=== PATIENT | female | born 1940 | race Hispanic/Latino ===

== ENCOUNTER → 2018-08-30 | Outpatient (CLI) | payer OTHER ==
[~2018-08-30] MED LIST: ACET-2743 PO; ALEN70TA10 PO; AMLO5TAB9 PO; CALC-1009 PO; PANT40TA25 PO
== END | disposition home or self-care (01) ==
LOC: RAH 12:42
PROVIDERS: ATTEND Internal Medicine
DX: E11.9 Type 2 diabetes mellitus without complications (principal)
CPT/HCPCS: 93922

== ENCOUNTER → 2018-12-28 | Outpatient (CLI) | payer OTHER ==
[2018-12-28 09:07] LABS: CREATININE 0.7 mg/dL (0.5-1.5)
== END | disposition home or self-care (01) ==
LOC: LAB 08:19
PROVIDERS: ATTEND Internal Medicine
DX: R10.84 Generalized abdominal pain (principal); R19.00 Intra-abdominal and pelvic swelling, mass and lump, unspecified site; K42.9 Umbilical hernia without obstruction or gangrene
CPT/HCPCS: 36415; 82565; 84520

== ENCOUNTER → 2019-01-04 | Outpatient (CLI) | payer OTHER ==
[~2019-01-04] MED LIST changes: +IOHEXOL-350 75 ML VIAL IV ONE
== END | disposition home or self-care (01) ==
LOC: RAH 07:22
PROVIDERS: ATTEND Internal Medicine
DX: K42.9 Umbilical hernia without obstruction or gangrene (principal); K76.0 Fatty (change of) liver, not elsewhere classified; J84.10 Pulmonary fibrosis, unspecified; J98.11 Atelectasis; I70.0 Atherosclerosis of aorta; M47.819 Spondylosis without myelopathy or radiculopathy, site unspecified; K57.30 Diverticulosis of large intestine without perforation or abscess without bleeding; K59.00 Constipation, unspecified
CPT/HCPCS: 74177; Q9967

== ENCOUNTER 2019-03-15 06:09 | Day surgery (SDC) | payer OTHER ==
[2019-03-11 14:48] VITALS: BP 95/61
[2019-03-11 14:56] LABS: BASOPHILS % (AUTO) 0.3 % (0.0-5.0); HEMATOCRIT 38.7 % (36-48); LYMPHOCYTES % (AUTO) 20.8 % (21.0-51.0); MEAN CORPUSCULAR HEMOGLOBIN 27.9 pg (27.0-33.0); MEAN CORPUSCULAR HGB CONC 32.8 g/dL (32.0-36.0); MEAN CORPUSCULAR VOLUME 85.1 fL (79-99); MONOCYTES % (AUTO) 5.3 % (3.0-13.0); NEUTROPHILS % (AUTO) 72.6 % (40.0-77.0); PLATELET COUNT (AUTO) 283 K/uL (130-400); RED BLOOD CELL COUNT(AUTO) 4.55 MIL/uL (4.00-5.50); RED CELL DISTRIBUTION WIDTH 16.1 % (11.0-15.5); WHITE BLOOD COUNT (AUTO) 14.5 K/uL (4.8-10.8)
--- NOTE | 2019-03-11 15:00 | NUR ---
HEADACHES/CT SCAN PATIENT STATES SHE IS SCHEDULED FOR AT CT SCAN OF HEAD TODAY AT 4:30 PM AT [facility] DUE TO A FALL 3-4 WEEKS AGO AND NOW HAVING HEADACHES. CT SCAN ORDERED BY HER PRIMARY CARE DR. CARLTON. ADRYAN AT DR. BANKS OFFICE NOTIFIED. ADVISED PATIENT/SPOUSE TO NOTIFY DR. SCOTT OF RESULTS ON THURSDAY. VERBALIZED UNDERSTANDING.
[2019-03-11 15:07] LABS: CREATININE 0.9 mg/dL (0.5-1.5); POTASSIUM 3.9 mmol/L (3.5-5.1)
--- NOTE | 2019-03-14 15:49 | NUR ---
ABNORMAL LABS WBC 14.[address] SCOTT. ORDERS TO REPEAT CBC IN AM UPON ARRIVAL.
[~2019-03-15] VITALS: Ht 147.3 cm; Wt 66.0 kg
[2019-03-15] VITALS (11 sets, daily range): BP systolic 109–158; BP diastolic 44–78
[~2019-03-15 06:09] MED LIST changes: -ALEN70TA10 PO; -AMLO5TAB9 PO; -CALC-1009 PO; +CETI10CA5 PO; -IOHEXOL-350 75 ML VIAL IV ONE; +METF-444 PO; +OLME40TA18 PO; +SODIUM CHLORIDE 0.9% 1000ML 1,000 ML IV SCH
[2019-03-15 06:45] LABS: BASOPHILS % (AUTO) 0.3 % (0.0-5.0); EOSINOPHILS % (AUTO) 1.8 % (0.0-8.0); HEMATOCRIT 36.4 % (36-48); LYMPHOCYTES % (AUTO) 26.9 % (21.0-51.0); MEAN CORPUSCULAR HEMOGLOBIN 28.7 pg (27.0-33.0); MEAN CORPUSCULAR HGB CONC 34.3 g/dL (32.0-36.0); MEAN CORPUSCULAR VOLUME 83.7 fL (79-99); MONOCYTES % (AUTO) 7.6 % (3.0-13.0); NEUTROPHILS % (AUTO) 63.4 % (40.0-77.0); PLATELET COUNT (AUTO) 208 K/uL (130-400); RED BLOOD CELL COUNT(AUTO) 4.34 MIL/uL (4.00-5.50); RED CELL DISTRIBUTION WIDTH 15.5 % (11.0-15.5); WHITE BLOOD COUNT (AUTO) 8.7 K/uL (4.8-10.8)
--- NOTE | 2019-03-15 07:21 | NUR ---
DR. ROTH AWARE OF PT FALL, INTERVIEWED PT.
[2019-03-15] MEDS ORDERED: SUCCINYLCHOLINE 200MG/10ML SYR ONE (07:31)
[2019-03-15] MEDS ORDERED: DEXAMETHASONE SOD PHOSPHATE 10MG/ML 1ML VIAL ONE (07:31)
[2019-03-15] MEDS ORDERED: LIDOCAINE PF 2% 5ML ABBOJECT ONE ×2 (07:31→07:33)
[2019-03-15] MEDS ORDERED: ONDANSETRON HCL 4 MG/2 ML VIAL ONE (07:32)
[2019-03-15] MEDS ORDERED: GLYCOPYRROLATE 1 MG/5 ML SYRINGE ONE (07:32)
[2019-03-15] MEDS ORDERED: PROPOFOL 10 MG/ML 20ML VIAL IV ONE (07:33)
[2019-03-15] MEDS ORDERED: FENTANYL CITRATE PF 50 MCG/1 ML 2ML VIAL ONE (07:33)
[2019-03-15] MEDS ORDERED: NEOSTIGMINE 5MG/5ML SYR IV ONE (07:33)
[2019-03-15] MEDS ORDERED: ROCURONIUM 10MG/1ML SYR 10 MG/ML ML ONE (07:33)
[2019-03-15] MEDS ORDERED: BUPIVACAINE/PF 0.25% 30ML VIAL IJ ONE (07:47)
== END 2019-03-15 10:00 | disposition home or self-care (01) ==
LOC: DAH 06:09
PROVIDERS: ATTEND Surgery
DX: K42.9 Umbilical hernia without obstruction or gangrene (principal); E11.9 Type 2 diabetes mellitus without complications; F17.210 Nicotine dependence, cigarettes, uncomplicated; F32.9 Major depressive disorder, single episode, unspecified; Z79.84 Long term (current) use of oral hypoglycemic drugs; Z79.899 Other long term (current) drug therapy; Z82.49 Family history of ischemic heart disease and other diseases of the circulatory system; Z83.3 Family history of diabetes mellitus; Z82.5 Family history of asthma and other chronic lower respiratory diseases
CPT/HCPCS: 36415 ×2; 49585; 80048; 82948 ×2; 85025 ×2; 93005; A4215; A4221; A4222; A4223 ×2; A4450; A4452; A4606; A4663; A6260; C1781; J0330; J1100; J2001 ×2; J2405; J2704; J2710; J3010; J3490 ×2; J7030 ×2; J7120

== ENCOUNTER 2022-06-25 12:20 | Observation (INO) | payer OTHER ==
[~2022-06-25] VITALS: Ht 152.4 cm; Wt 62.1 kg
[~2022-06-25 12:20] MED LIST changes: -PANT40TA25 PO; +PANT40TA54 PO; -SODIUM CHLORIDE 0.9% 1000ML 1,000 ML IV SCH
[2022-06-25 13:26] LABS: BASOPHILS % (AUTO) 0.3 % (0.0-5.0); EOSINOPHILS % (AUTO) 0.1 % (0.0-8.0); HEMATOCRIT 40.6 % (36-48); LYMPHOCYTES % (AUTO) 10.2 % (21.0-51.0); MEAN CORPUSCULAR HEMOGLOBIN 29.8 pg (27.0-33.0); MEAN CORPUSCULAR VOLUME 87.7 fL (79-99); MONOCYTES % (AUTO) 6.9 % (3.0-13.0); NEUTROPHILS % (AUTO) 81.7 % (40.0-77.0); PLATELET COUNT (AUTO) 334 K/uL (130-400); RED BLOOD CELL COUNT(AUTO) 4.63 MIL/uL (4.00-5.50); RED CELL DISTRIBUTION WIDTH 13.8 % (11.0-15.5); WHITE BLOOD COUNT (AUTO) 23.1 K/uL (4.8-10.8)
[2022-06-25] MEDS ORDERED: DEXTROSE 50%-WATER 50 ML DISP.SYRIN IV PRN (13:30)
[2022-06-25] MEDS ORDERED: GLUCAGON 1MG KIT 1 MG ML IM PRN (13:30)
[2022-06-25 13:40] LABS: ALBUMIN 4.3 g/dL (3.5-5.0); BILIRUBIN,DIRECT 0.2 mg/dL (0.0-0.3); CREATININE 1.9 mg/dL (0.5-1.5); POTASSIUM 3.9 mmol/L (3.5-5.1); TOTAL PROTEIN, SERUM 8.3 g/dL (6.0-8.3)
[2022-06-25] MEDS: ZOSYN 3.375GM +NS 50ML IV SCH ×2 (13:53→20:56)
[2022-06-25] MEDS: ACETYLCYSTEINE 20% 200MG/ML 4ML VIAL IH SCH (14:23)
[2022-06-25] MEDS ORDERED: ACETAMINOPHEN 325 MG TAB PO PRN (14:30)
[2022-06-25] MEDS ORDERED: GUAIFENESIN-DM 200/20 MG 10 ML PO PRN (14:30)
[2022-06-25] MEDS ORDERED: ONDANSETRON 4MG INJ IVP PRN (14:30)
[2022-06-25] MEDS ORDERED: IPRATROPIUM/ALBUTEROL SULFATE 3 ML SOLUTION IH PRN (14:30)
[2022-06-25] MEDS ORDERED: ZOLPIDEM TARTRATE 5 MG TAB PO PRN (14:30)
[2022-06-25] MEDS ORDERED: IPRATROPIUM 0.5 MG/2.5 ML INH IH ONE (14:51)
[2022-06-25] MEDS ORDERED: ALBUTEROL 0.083% 2.5 MG/3 ML INH IH ONE (14:51)
[2022-06-25] MEDS ORDERED: GABA-529 PO (18:29)
[2022-06-25] MEDS ORDERED: DULA1.5P SQ (18:29)
[2022-06-25 19:55] VITALS: BP 108/64
[2022-06-25] MEDS: SOLU-MEDROL 40MG VIAL IVP SCH (20:55)
[2022-06-25] MEDS: GABAPENTIN 100 MG CAPSULE PO SCH (20:56)
[2022-06-25] MEDS: FAMOTIDINE 20MG TAB PO SCH (20:56)
[2022-06-25] MEDS: 1/2 NS 1000ML 1,000 ML IV SCH (22:30)
[2022-06-25] MEDS ORDERED: DOCUSATE SODIUM 100 MG CAP PO ONE (22:42)
[2022-06-25] MEDS ORDERED: 1/2 NS 1000ML 1,000 ML IV ONE (22:43)
[2022-06-26] VITALS (7 sets, daily range): BP systolic 104–139; BP diastolic 45–68
[2022-06-26] MEDS: ZOSYN 3.375GM +NS 50ML IV SCH ×3 (04:33→20:35)
[2022-06-26 05:24] LABS: BASOPHILS % (AUTO) 0.1 % (0.0-5.0); HEMATOCRIT 35.3 % (36-48); MEAN CORPUSCULAR HEMOGLOBIN 29.4 pg (27.0-33.0); MEAN CORPUSCULAR HGB CONC 33.4 g/dL (32.0-36.0); MONOCYTES % (AUTO) 0.5 % (3.0-13.0); NEUTROPHILS % (AUTO) 92.5 % (40.0-77.0); PLATELET COUNT (AUTO) 227 K/uL (130-400); RED BLOOD CELL COUNT(AUTO) 4.01 MIL/uL (4.00-5.50); RED CELL DISTRIBUTION WIDTH 13.8 % (11.0-15.5); WHITE BLOOD COUNT (AUTO) 13.2 K/uL (4.8-10.8)
[2022-06-26] MEDS: INSULIN HUMULIN R 100 UNIT/ML 3ML SQ SCH ×4 (05:49→20:36)
[2022-06-26 05:51] LABS: ALBUMIN 3.5 g/dL (3.5-5.0); BILIRUBIN,DIRECT 0.1 mg/dL (0.0-0.3); CREATININE 1.3 mg/dL (0.5-1.5); POTASSIUM 4.4 mmol/L (3.5-5.1); TOTAL PROTEIN, SERUM 7.3 g/dL (6.0-8.3)
[2022-06-26] MEDS: ALBUTEROL 0.083% 2.5 MG/3 ML INH IH PRN ×2 (07:01→13:50)
[2022-06-26] MEDS: IPRATROPIUM 0.5 MG/2.5 ML INH IH PRN ×3 (07:01→22:51)
[2022-06-26] MEDS: ACETYLCYSTEINE 20% 200MG/ML 4ML VIAL IH SCH ×4 (07:02→22:50)
[2022-06-26] MEDS ORDERED: SODIUM CHLORIDE 3% FOR INHALATION 4 ML/AMP VIAL.NEB IH ONE (07:35)
[2022-06-26] MEDS: Olmesartan 40 MG PO SCH (09:00)
[2022-06-26] MEDS: SOLU-MEDROL 40MG VIAL IVP SCH ×2 (09:11→20:35)
[2022-06-26] MEDS: DOCUSATE SODIUM 100 MG CAP PO SCH (09:12)
[2022-06-26] MEDS: GABAPENTIN 100 MG CAPSULE PO SCH ×3 (09:12→20:35)
[2022-06-26] MEDS: PANTOPRAZOLE 40 MG TAB DR PO SCH (09:12)
[2022-06-26] MEDS: FAMOTIDINE 20MG TAB PO SCH ×2 (09:12→20:35)
[2022-06-27] MEDS: 1/2 NS 1000ML 1,000 ML IV SCH (01:04)
[2022-06-27 03:38] VITALS: BP 132/70
[2022-06-27] MEDS: ZOSYN 3.375GM +NS 50ML IV SCH (04:31)
[2022-06-27] MEDS: INSULIN HUMULIN R 100 UNIT/ML 3ML SQ SCH ×2 (06:11→10:49)
[2022-06-27] MEDS: ACETYLCYSTEINE 20% 200MG/ML 4ML VIAL IH SCH (06:59)
[2022-06-27] MEDS: ALBUTEROL 0.083% 2.5 MG/3 ML INH IH PRN (06:59)
[2022-06-27] MEDS: IPRATROPIUM 0.5 MG/2.5 ML INH IH PRN (06:59)
[2022-06-27 07:30] VITALS: BP 145/76
[2022-06-27] MEDS: Olmesartan 40 MG PO SCH (09:00)
[2022-06-27] MEDS: GABAPENTIN 100 MG CAPSULE PO SCH (09:52)
[2022-06-27] MEDS: DOCUSATE SODIUM 100 MG CAP PO SCH (09:52)
[2022-06-27] MEDS: FAMOTIDINE 20MG TAB PO SCH (09:52)
[2022-06-27] MEDS: SOLU-MEDROL 40MG VIAL IVP SCH (09:53)
[2022-06-27] MEDS: PANTOPRAZOLE 40 MG TAB DR PO SCH (09:53)
[2022-06-27 11:25] VITALS: BP 135/70
[2022-07-02] MEDS ORDERED: Dulaglutide (Trulicity) 1.5 MG SQ SCH (09:00)
== END 2022-06-27 11:05 | disposition home or self-care (01) ==
LOC: EDH 12:20 → DIRECT 12:21 → UNDOADMOB 12:21 → 3BH 18:00
PROVIDERS: ADMIT Internal Medicine; ATTEND Internal Medicine
DX: J44.1 Chronic obstructive pulmonary disease with (acute) exacerbation (principal); Z20.822 Contact with and (suspected) exposure to COVID-19; I10 Essential (primary) hypertension; E11.9 Type 2 diabetes mellitus without complications; K59.00 Constipation, unspecified; E78.5 Hyperlipidemia, unspecified; I45.10 Unspecified right bundle-branch block; F32.9 Major depressive disorder, single episode, unspecified; K21.9 Gastro-esophageal reflux disease without esophagitis; Z79.899 Other long term (current) drug therapy; Z98.890 Other specified postprocedural states
CPT/HCPCS: 96361 ×3; 96365; 96366 ×3; 96375; 80053; 85025 ×2; 82948 ×7; 36415 ×2; 87635; 71046; 94640 ×7; 94664; 96376 ×2; 96372 ×2; 80076; 80048; 87071; 87205; G0378 ×44; G0379; J2920 ×4; J2543 ×6; J7608 ×6; J1815 ×3

== ENCOUNTER 2023-01-26 23:20 | Observation (INO) | payer OTHER ==
[~2023-01-26] VITALS: Ht 152.4 cm; Wt 61.6 kg
[~2023-01-26 23:20] MED LIST changes: -CETI10CA5 PO; +DULA1.5P SQ; +GABA-529 PO; -METF-444 PO
[2023-01-27] VITALS (9 sets, daily range): BP systolic 121–145; BP diastolic 63–79; PULSE 74–84; RESP 16–20; TEMP 100.9; O2SAT 96–98
[2023-01-27] MEDS ORDERED: ACETAMINOPHEN 500 MG TABLET ONE (00:06)
[2023-01-27 00:18] LABS: RAPID GROUP A STREP negative (NEGATIVE)
[2023-01-27 00:24] LABS: SARS-CoV-2, RNA, NAAT NEGATIVE SARS CoV-2 (NEGATIVE)
[2023-01-27 00:28] LABS: INFLUENZA TYPE A Negative For Type A (NEGATIVE); INFLUENZA TYPE B Negative For Type B (NEGATIVE)
[2023-01-27] MEDS ORDERED: 0.9%NACL 1000ML 1,000 ML IV ONE (00:30)
[2023-01-27] MEDS ORDERED: CEFTRIAXONE 2GM VIAL IVPB ONE (00:30)
[2023-01-27 00:31] LABS: BASOPHILS # (AUTO) 0.04 K/uL (0.00-0.20); BASOPHILS % (AUTO) 0.2 % (0.0-5.0); EOSINOPHILS # (AUTO) 0.01 K/uL (0.00-0.70); EOSINOPHILS % (AUTO) 0.1 % (0.0-8.0); HEMATOCRIT 38.2 % (36-48); IMMATURE GRANULOCYTE ABSOLUTE 0.11 K/uL (0-1); LYMPHOCYTES # (AUTO) 0.9 K/uL (1.0-4.8); LYMPHOCYTES % (AUTO) 4.7 % (21.0-51.0); MEAN CORPUSCULAR HEMOGLOBIN 29.3 pg (27.0-33.0); MEAN CORPUSCULAR HGB CONC 33.8 g/dL (32.0-36.0); MEAN CORPUSCULAR VOLUME 86.8 fL (79-99); MONOCYTES # (AUTO) 1.2 K/uL (0.1-1.0); MONOCYTES % (AUTO) 6.3 % (3.0-13.0); NEUTROPHILS # (AUTO) 16.1 K/uL (1.8-7.7); NEUTROPHILS % (AUTO) 88.1 % (40.0-77.0); PLATELET COUNT (AUTO) 260 K/uL (130-400); RED CELL DISTRIBUTION WIDTH 13.1 % (11.0-15.5); WHITE BLOOD COUNT (AUTO) 18.3 K/uL (4.8-10.8)
[2023-01-27] MEDS ORDERED: ACETAMINOPHEN 500 MG TABLET PO STA (00:33)
[2023-01-27 00:41] LABS: CREATININE 0.7 mg/dL (0.5-1.5); POTASSIUM 3.7 mmol/L (3.5-5.1)
[2023-01-27 00:48] LABS: ALBUMIN 3.6 g/dL (3.5-5.0); TOTAL PROTEIN, SERUM 7.6 g/dL (6.0-8.3)
[2023-01-27] MEDS ORDERED: IOHEXOL 350 MG/ML 100ML INFUS..BTL IV ONE (01:19)
[2023-01-27 01:30] LABS: WBC MORPHOLOGY CONSISTENT W/DIFF
[2023-01-27] MEDS ORDERED: DEXAMETHASONE SOD PHOSPHATE 4 MG/ML 1ML VIAL IVP ONE (03:00)
[2023-01-27] MEDS ORDERED: SOLU-MEDROL 125MG VIAL IVP ONE (04:00)
[2023-01-27] MEDS: 1/2 NS 1000ML 1,000 ML IV SCH ×2 (04:24→13:34)
[2023-01-27] MEDS: ZOSYN 3.375GM +NS 50ML IVPB SCH ×2 (08:21→17:31)
[2023-01-27] MEDS ORDERED: 0.9%NACL 50ML IV SCH (09:00)
[2023-01-27] MEDS: INSULIN HUMULIN R 100 UNIT/ML 3ML SQ SCH (19:56)
[2023-01-28] VITALS (7 sets, daily range): BP systolic 130–148; BP diastolic 56–80; PULSE 63–75; RESP 18–20; O2SAT 98–100
[2023-01-28] MEDS: 1/2 NS 1000ML 1,000 ML IV SCH ×3 (00:21→20:06)
[2023-01-28] MEDS: ZOSYN 3.375GM +NS 50ML IVPB SCH ×3 (00:21→17:05)
[2023-01-28 04:07] LABS: HEMATOCRIT 33.2 % (36-48); MEAN CORPUSCULAR HEMOGLOBIN 29.2 pg (27.0-33.0); MEAN CORPUSCULAR HGB CONC 33.7 g/dL (32.0-36.0); MEAN CORPUSCULAR VOLUME 86.7 fL (79-99); RED BLOOD CELL COUNT(AUTO) 3.83 MIL/uL (4.00-5.50); RED CELL DISTRIBUTION WIDTH 13.4 % (11.0-15.5); WHITE BLOOD COUNT (AUTO) 12.3 K/uL (4.8-10.8)
[2023-01-28 04:31] LABS: ALBUMIN 2.8 g/dL (3.5-5.0); BILIRUBIN,TOTAL 0.3 mg/dL (0.2-1.0); CREATININE 0.8 mg/dL (0.5-1.5); POTASSIUM 3.8 mmol/L (3.5-5.1); TOTAL PROTEIN, SERUM 6.4 g/dL (6.0-8.3)
[2023-01-28] MEDS: INSULIN HUMULIN R 100 UNIT/ML 3ML SQ SCH ×3 (05:45→20:06)
[2023-01-29] MEDS: ZOSYN 3.375GM +NS 50ML IVPB SCH (00:15)
[2023-01-29 04:00] VITALS: BP 152/66; PULSE 67; RESP 20
[2023-01-29 04:47] LABS: HEMATOCRIT 31.9 % (36-48); MEAN CORPUSCULAR HEMOGLOBIN 29.8 pg (27.0-33.0); MEAN CORPUSCULAR HGB CONC 34.2 g/dL (32.0-36.0); MEAN CORPUSCULAR VOLUME 87.2 fL (79-99); RED BLOOD CELL COUNT(AUTO) 3.66 MIL/uL (4.00-5.50); RED CELL DISTRIBUTION WIDTH 13.6 % (11.0-15.5); WHITE BLOOD COUNT (AUTO) 10.2 K/uL (4.8-10.8)
[2023-01-29 05:06] LABS: ALBUMIN 2.6 g/dL (3.5-5.0); BILIRUBIN,TOTAL 0.2 mg/dL (0.2-1.0); POTASSIUM 3.8 mmol/L (3.5-5.1); TOTAL PROTEIN, SERUM 6.1 g/dL (6.0-8.3)
[2023-01-29] MEDS: INSULIN HUMULIN R 100 UNIT/ML 3ML SQ SCH (05:22)
[2023-01-29] MEDS: 1/2 NS 1000ML 1,000 ML IV SCH (06:00)
[2023-01-29 08:00] VITALS: BP 152/62; PULSE 65; RESP 17; O2SAT 97
== END 2023-01-29 08:20 | disposition home or self-care (01) ==
LOC: EDH 23:20 → EDHIP 01-27 03:34 → 4AH 01-27 04:55
PROVIDERS: ADMIT Internal Medicine; ATTEND Internal Medicine
DX: A41.9 Sepsis, unspecified organism (principal); Z20.822 Contact with and (suspected) exposure to COVID-19; J03.90 Acute tonsillitis, unspecified; J39.0 Retropharyngeal and parapharyngeal abscess; K12.2 Cellulitis and abscess of mouth; I10 Essential (primary) hypertension; E11.9 Type 2 diabetes mellitus without complications; D72.829 Elevated white blood cell count, unspecified; E78.5 Hyperlipidemia, unspecified; Z79.899 Other long term (current) drug therapy
CPT/HCPCS: 96376; 96372; 96361 ×3; 96365; 96366 ×3; 96375; 96367; 99285; 84484; 80053 ×3; 85025; 87040 ×2; 87880; 87804 ×2; 82948 ×7; 83605; 36415 ×3; 87635; 70491; 85027 ×2; G0378 ×52; C9803; J7030; J2930; J0696; J2543 ×6; J1100; J1815; Q9967

== ENCOUNTER 2023-05-09 10:17 | Emergency (ER) | payer OTHER ==
[~2023-05-09] VITALS: Ht 124.5 cm; Wt 62.1 kg
[~2023-05-09 10:17] MED LIST changes: -ACET-2743 PO
[2023-05-09 10:34] VITALS: BP 130/83; PULSE 84; RESP 16
[2023-05-09] MEDS ORDERED: ACETAMINOPHEN 325 MG TAB PO ONE (11:30)
== END 2023-05-09 13:55 | disposition home or self-care (01) ==
LOC: EDH 10:17
DX: M54.50 Low back pain, unspecified (principal); I10 Essential (primary) hypertension; J45.909 Unspecified asthma, uncomplicated; K21.9 Gastro-esophageal reflux disease without esophagitis; Z79.899 Other long term (current) drug therapy; Z98.890 Other specified postprocedural states
CPT/HCPCS: 72070; 72100

== ENCOUNTER 2023-05-28 06:20 | Day surgery (SDC) | payer OTHER ==
[~2023-05-28] VITALS: Ht 144.8 cm; Wt 59.9 kg
[2023-05-28] VITALS (11 sets, daily range): BP systolic 103–158; BP diastolic 41–81; PULSE 64–80; RESP 15–20
[~2023-05-28 06:20] MED LIST changes: +0.9%NACL 1000ML 1,000 ML IV ONE
[2023-05-28] MEDS ORDERED: PROPOFOL 10 MG/ML 20ML VIAL IV ONE ×2 (09:08)
== END 2023-05-28 11:05 | disposition home or self-care (01) ==
LOC: ENDO 06:20 → DAH 06:20 → ENDO 11:05
PROVIDERS: ATTEND Internal Medicine Gastroenterology
DX: R10.32 Left lower quadrant pain (principal); D12.2 Benign neoplasm of ascending colon; K63.89 Other specified diseases of intestine; K57.30 Diverticulosis of large intestine without perforation or abscess without bleeding; K29.50 Unspecified chronic gastritis without bleeding; K31.89 Other diseases of stomach and duodenum; K55.8 Other vascular disorders of intestine; K59.04 Chronic idiopathic constipation; K21.00 Gastro-esophageal reflux disease with esophagitis, without bleeding; R13.10 Dysphagia, unspecified; I10 Essential (primary) hypertension; J45.909 Unspecified asthma, uncomplicated; M81.0 Age-related osteoporosis without current pathological fracture; F32.A Depression, unspecified; Z83.3 Family history of diabetes mellitus; Z82.49 Family history of ischemic heart disease and other diseases of the circulatory system; Z82.5 Family history of asthma and other chronic lower respiratory diseases; Z98.890 Other specified postprocedural states; Z79.899 Other long term (current) drug therapy
CPT/HCPCS: 82948; 43239; 45380; 45385; J7030 ×3; J2704 ×2; A4620 ×2; A4215 ×4; A4223 ×2; A7002 ×2; A4222 ×2; A4221 ×2; A4663; A4216 ×2; A4606 ×2; J3490

== ENCOUNTER 2024-04-11 05:42 | Day surgery (SDC) | payer OTHER ==
[2024-04-11] VITALS (10 sets, daily range): BP systolic 111–153; BP diastolic 55–88; PULSE 66–78; RESP 14–17; TEMP 97.4–98
[~2024-04-11] VITALS: Ht 152.4 cm; Wt 112.9 kg
[~2024-04-11 05:42] MED LIST changes: -0.9%NACL 1000ML 1,000 ML IV ONE; +OMEP20CA12 PO; -PANT40TA54 PO
[2024-04-11] MEDS: 0.9%NACL 1000ML 1,000 ML IV ONE (06:27)
[2024-04-11] MEDS ORDERED: proPOFol 10 MG/ML 20ML VIAL IV ONE (07:26)
== END 2024-04-11 08:48 ==
LOC: ENDO 05:42 → DAH 05:42 → ENDO 08:48
PROVIDERS: ATTEND Internal Medicine Gastroenterology
DX: R13.10 Dysphagia, unspecified (principal); K29.50 Unspecified chronic gastritis without bleeding; K31.89 Other diseases of stomach and duodenum; I10 Essential (primary) hypertension; J45.909 Unspecified asthma, uncomplicated; F32.A Depression, unspecified; M81.0 Age-related osteoporosis without current pathological fracture; K21.9 Gastro-esophageal reflux disease without esophagitis; K52.3 Indeterminate colitis; D12.6 Benign neoplasm of colon, unspecified; K59.04 Chronic idiopathic constipation; R06.89 Other abnormalities of breathing; E11.9 Type 2 diabetes mellitus without complications; Z96.653 Presence of artificial knee joint, bilateral; Z98.890 Other specified postprocedural states; Z79.899 Other long term (current) drug therapy
CPT/HCPCS: 43248; 43239; 82948 ×2; J7030; J2704; A4620; A4215 ×2; A4223; A4222; A4221; A4663; A4606; J3490

== ENCOUNTER → 2024-04-19 | Outpatient (CLI) | payer OTHER ==
--- NOTE | 2024-04-19 11:44 | HMCIMG ---
UPPER GI TRACT, WO KUB REASON: DYSPHAGIA, UNSPECIFIED. COMPARISON: None TECHNIQUE: Single contrast upper GI series was performed. FINDINGS: Postop changes are seen of the cervical spine. Tertiary esophageal contractions are seen. There is no obstruction to the antegrade passage of barium from mouth through jejunum. No evidence of hiatal hernia is seen. There is gastroesophageal reflux seen to the level of upper mid thoracic esophagus. Stomach is well distended without ulceration or mass lesion. Duodenal bulb and duodenal sweep are unremarkable. No ulceration or mass lesion is seen. IMPRESSION: Tertiary esophageal contraction. No obstruction. There is esophageal reflux into the level of upper mid thoracic esophagus.
== END | disposition home or self-care (01) ==
LOC: RAH 08:24
PROVIDERS: ATTEND Internal Medicine
DX: K21.9 Gastro-esophageal reflux disease without esophagitis (principal); K31.89 Other diseases of stomach and duodenum; R13.10 Dysphagia, unspecified; Z90.49 Acquired absence of other specified parts of digestive tract
CPT/HCPCS: 74240

== ENCOUNTER → 2024-04-27 | Outpatient (CLI) | payer OTHER ==
--- NOTE | 2024-04-27 21:08 | HMCSR ---
APPROVED REPORT EXAM: Two-dimensional and M-mode echocardiogram with Doppler and color Doppler. INDICATION ICD: Shortness of breath R06.02 2D Dimensions RVDd2.9 cmLVEF(%)39.8 (>50%)LVED Vol(simp.)35.6 mL IVSd1.2 (0.7-1.1cm)FS(%)19 %LVES Vol(simp.)14.0 mL LVDd3.7 (3.8-5.6cm)LA (2D)3.7 (1.6-4.0cm)LVEF(%, simp.)61 % PWd1.3 (0.7-1.1cm)Ao Root(2D)2.8 (2.0-3.7cm)LA ESV INDEX (4CH)19.30 mL/m2 IVSs1.4 cmLVOT diam1.7 (1.8-2.4cm)LA ESV INDEX (2CH)18.00 mL/m2 LVDs3.0 (2.5-4.0cm)IVC diam2.1 cmLA ESV INDEX (BP)18.50 mL/m2 PWs2.0 cm M-Mode Dimensions EPSS0.5 cm LA (MM)4.1 (1.6-4.0cm) Ao Root(MM)2.5 (2.0-3.7cm) Aortic Valve AoV VTI0.2 mAo Mean GR3.0 mmHgLVOT VTI0.14 m BRIA (VMAX)1.5 cm2AVA (VTI) 1.5 cm2 Mitral Valve MV E Vmax54.8 cm/sDECEL Qipk048 ms MV A Vmax70.3 cm/sP 1/2 T62 ms E/A ratio0.8MVA (PHT)3.5 cm2 TDI E/E' Wnysom16.1E/E' Uvqdcgm62.6 Medial E' Peak V3.20 cm/sLateral E' Peak V3.30 cm/s Pulmonary Valve PV Vmax0.9 m/sPI End Emma. Ricardo 93.7 cm/s PV Peak GR3.0 mmHg Tricuspid Valve TR Vmax3.0 m/sRAP (EST) 3 xzZwVKGW18.0 mmHg TR Peak GR36.0 mmHg Left Ventricle The left ventricle is normal size. There is normal LV segmental wall motion. Mild concentric left felicitas tricular hypertrophy. LVEF is 60-65%. Stage I diastolic dysfunction. Right Ventricle The right ventricle is normal size. The right ventricular systolic function is normal. Atria The left atrium size is normal. The right atrium size is normal. Aortic Valve The aortic valve is normal in structure. No aortic regurgitation is present. There is no aortic valvu lar stenosis. Mitral Valve The mitral valve is normal in structure. There is no mitral valve regurgitation noted. There is no mi tral valve stenosis. Tricuspid Valve The tricuspid valve is normal in structure. There is trace tricuspid valve regurgitation noted. Pulmonic Valve The pulmonary valve is normal in structure. There is no pulmonic valvular regurgitation. Great Vessels The aortic root is normal in size. The IVC is normal in size and collapses >50% with inspiration. Pericardium There is no pericardial effusion. Epicardial fat pad. Conclusion The left atrium size is normal. The left ventricle is normal size. Mild concentric left ventricular hypertrophy. There is normal LV segmental wall motion. LVEF is 60-65%. Stage I diastolic dysfunction. The aortic valve is normal in structure. There is no mitral valve regurgitation noted. There is no pericardial effusion. Epicardial fat pad.
== END | disposition home or self-care (01) ==
LOC: RAH 12:21
PROVIDERS: ATTEND Internal Medicine
DX: I51.89 Other ill-defined heart diseases (principal); I51.7 Cardiomegaly; J44.1 Chronic obstructive pulmonary disease with (acute) exacerbation; R06.02 Shortness of breath
CPT/HCPCS: 93306

== ENCOUNTER 2024-05-08 08:16 | Emergency (ER) | payer OTHER ==
[~2024-05-08] VITALS: Ht 149.9 cm; Wt 66.2 kg
--- NOTE | 2024-05-08 08:26 | ERN ---
General Chief Complaint: Low Back Pain/Injury Stated Complaint: BACK PAIN Time Seen by MD: 08:18 History of Present Illness Initial Comments 83-year-old female who presents for lower back pain. Patient has a history of chronic back pain. She sees Dr. Kitchen in [place]. She reports that about two months ago she had a fall since then she has had significant pain more than usual. She is scheduled to go back to Dr. Kitchen for an injection but until this week. She is taking to to Tizanidine, Celebrex. No urinary symptoms. No incontinence. No anesthesia. She is ambulatory. Allergies: Coded Allergies: No Known Allergies (Unverified Allergy, Unknown, 07/02/15) No Known Drug Allergies (Unverified Allergy, Unknown, 07/02/15) Home Meds Reported Medications Omeprazole (Omeprazole) 20 Mg Capsule.dr, 1 CAP PO DAILY for 30 Days, #30 CAP 0 Refills 04/08/24 Dulaglutide (Trulicity) 1.5 Mg/0.5 Ml Pen.injctr, 1.5 MG SQ QWEEK 06/25/22 Gabapentin (Gabapentin) 100 Mg Capsule, 300 MG PO TID, CAP 06/25/22 Olmesartan Medoxomil (Olmesartan Medoxomil) 40 Mg Tablet, 40 MG PO AM, TAB 03/11/19 Past Medical History Past Medical History: Diabetes-Type II, Hypertension Medical History Other: CHRONIC BACK PAIN Past Surgical History: Other Surgical History Other: LOBECTOMY, BACK SX, BILAT KNEE SX ROS Dictation CONSTITUTIONAL: No chills, no fever, no weakness, no diaphoresis, no malaise. HEAD/FACE: No signs of trauma. EENT: No eye pain, no blurred vision, no tearing, no double vision, no ear pain, no ear discharge, no nose pain, no nasal congestion, no throat pain, no throat swelling, no mouth pain. RESPIRATORY: No cough, no orthopnea, no SOB, no stridor, no wheezing. CARDIOVASCULAR: No chest pain, no edema, no palpitations, no syncope. GASTROINTESTINAL/ABDOMINAL: No abdominal pain, no constipation, no diarrhea, no nausea, no vomiting. GENITOURINARY: No abnormal discharge, no dysuria, no frequent urination, no hematuria. No complaints of pain in the genitals. MUSCULOSKELETAL: Lower back pain INTEGUMENTARY: No change in color, no change in hair/nails, no dryness, no lesion, no lumps, no rash. NEUROLOGICAL/PSYCH: No anxiety, not depressed, no emotional problem, no headache, no numbness, no pre-existing deficit, no history of seizures, no tremors, no weakness. HEMATOLOGIC/LYMPHATIC: Not anemic, no history of blood clots, no apparent bleeding, no bruising, glands not swollen. All Systems Negative, Except as Noted. Physical Exam Physical Exam Dictation VITAL SIGNS: Reviewed. GENERAL APPEARANCE: Alert, oriented x3, no acute distress, obese. HEAD AND FACE: Non-traumatic. EYES: PERRL, pink conjunctivas, eyelid no trauma, anterior chamber clear. EARS: Pinnas intact and no signs of trauma or erythema. Ear canals clear and no discharge. TMs no erythema. NOSE: No discharge, no bleeding. OROPHARYNX: Mouth normal, teeth no caries, tongue pink. Pharynx clear, no erythema. Tonsils no exudates, no abscesses noted. Mucous membrane moist. NECK: Supple, non-tender, no thyromegaly, no masses, no JVD, no bruits. BREAST: Deferred. CHEST: No tenderness, no crepitus, no paradoxical movement, no retractions. LUNGS: Clear, well-ventilated, symmetric, no rales, no wheezing, no rhonchi, no stridor, good breath sounds bilaterally. HEART: Regular rate, regular rhythm, no murmur, no gallops. VASCULAR: No peripheral edema. ABDOMEN: Soft, positive bowel sounds, nondistended, no guarding, nontender, no rebound, no masses no hepatomegaly, no splenomegaly, no Muir's sign, no hernias. RECTAL: Deferred. GENITAL: Deferred. NEUROLOGICAL: Normal speech, gross motor function intact, gross sensory function intact. MUSCULOSKELETAL: Neck nontender, full range of motion, back nontender, full range of motion. EXTREMITIES: Nontender, full range of motion. SKIN: Color pink, dry, no turgor, no rash, no lacerations, no abrasions, no contusions. LYMPHATICS: Deferred. MDM CC: lower back pain, severe Historian: patient Comorbidities: Chronic back pain, advanced age Differential diagnosis: Fracture, arthritis, other Patient received oral [place] and IM Toradol. On re-evaluation she still has significant pain CT lumbar spine without contrast and CT pelvis without contrast ( independently interpreted by me): Degenerative changes but no acute fractures. Since the patient still has significant pain, given a dose of IV Dilaudid. Pain improved. We will discharge with prescription for [place] and recommend that the patient follows up with the primary doctor. REASON: lower back pain, fall ORDERING PHYSICIAN: KRISHNA HARRIS DO PROCEDURE: PELVIS WO - CT PELVIS W/O CONTRAST CT pelvis without IV contrast HISTORY: Trauma COMPARISON: None TECHNIQUE: Multiple sequential axial images of the pelvis were obtained from the iliac crests through symphysis pubis. Coronal and sagittal reformations and surface rendering three-dimensional reconstructions of the bones of the pelvis are also obtained. FINDINGS: There is osteopenia of the pelvis. There are degenerative changes of the left hip and the lumbosacral junction and there are postoperative changes of the lower lumbar spine. There is diverticulosis of the colon. The soft tissues of the pelvis are unremarkable. IMPRESSION: No fractures seen. Automated exposure control and adaptive statistical iterative reconstruction were utilized as dose reduction techniques. REASON: lower back pain, fall ORDERING PHYSICIAN: KRISHNA HARRIS DO PROCEDURE: L SPIN WO - CT LUMBAR SPINE W/O CONTRAST Exam Type: CT LUMBAR SPINE W/O CONTRAST Clinical Information: lower back pain, fall Comparison: None Findings: Extensive degenerative and postoperative changes of the lumbar spine with multilevel spondylitic and degenerative disc disease as well as multilevel disc fusion. No acute fractures or dislocations. Preserved lordosis. No other abnormalities. IMPRESSION: Chronic changes. No acute pathology. No acute fractures. ED Course Orders Procedure Category Date Status Time Ct Lumbar Spine W/O CT 05/08/24 Resulted Contrast 08:23 Ct Pelvis W/O Contrast CT 05/08/24 Resulted 08:23 Hydrocodone/Apap PHA 05/08/24 Complete 5/325 ([place] 5/325mg) 08:30 Ketorolac PHA 05/08/24 Complete Tromethamine 15mg/Ml 08:30 Hydromorphone 0.5mg PHA 05/08/24 Complete Syg (Dilaudid 0.5mg 09:30 Current Medications Medications (Trade) Dose Ordered Sig/[place] Route PRN Reason Start Time Stop Time Status Last Admin Dose Admin Acetaminophen/ Hydrocodone Bitart (NORco 5/325MG) 1 tab ONCE ONCE PO 05/08/24 08:30 05/08/24 08:31 DC 05/08/24 08:53 Hydromorphone HCl (DiLAUDid 0.5MG INJ) 0.5 mg ONCE ONCE IVP 05/08/24 09:30 05/08/24 09:31 DC 05/08/24 09:32 Ketorolac Tromethamine (toRADol) 15 mg ONCE ONCE IM 05/08/24 08:30 05/08/24 08:31 DC 05/08/24 08:51 Vital Signs Date Time Temp Pulse Resp B/P (MAP) Pulse Ox O2 Delivery O2 Flow Rate FiO2 05/08/24 08:53 97.7 78 18 172/91 98 Room Air* 0 21 05/08/24 08:18 98.2 78 18 158/82 97 Room Air 0 DX & DISP Disposition: Discharge Departure Impression: Primary Impression: Low back pain Condition: Stable Scripts Hydrocodone/Acetaminophen (Hydrocodon-Acetaminophen 5-325) 5 Mg-325 Mg Tablet 1 TAB PO TIDP PRN for pain for 5 Days, #15 TAB 0 Refills Prov: KRISHNA HARRIS DO 05/08/24 Additional Instructions: Your symptoms are consistent with chronic flare-up of your lower back pain. The CT scan of your lumbar spine and pelvis show degenerative joint disease but are otherwise unremarkable. Continue with your home medications (Celecoxib, tizanidine). I have also prescribed [place] tabs you can take up to 3 times a day for significant pain. Be sure to use a heating pad. You can also try [id number] Voltaren gel or lidocaine or Salonpas patches. Please follow up with Dr. Kitchen. Return to the emergency department as needed. Referrals: JAIME CARLTON MD (PCP) KRISHNA HARRIS DO May 08, 2024 08:26
--- NOTE | 2024-05-08 08:49 | HMCIMG ---
Exam Type: CT LUMBAR SPINE W/O CONTRAST Clinical Information: lower back pain, fall Comparison: None Findings: Extensive degenerative and postoperative changes of the lumbar spine with multilevel spondylitic and degenerative disc disease as well as multilevel disc fusion. No acute fractures or dislocations. Preserved lordosis. No other abnormalities. IMPRESSION: Chronic changes. No acute pathology. No acute fractures.
[2024-05-08] MEDS: ketOROlac 15MG/ML VIAL (15MG/ML) IM ONE (08:51)
--- NOTE | 2024-05-08 08:51 | HMCIMG ---
CT pelvis without IV contrast HISTORY: Trauma COMPARISON: None TECHNIQUE: Multiple sequential axial images of the pelvis were obtained from the iliac crests through symphysis pubis. Coronal and sagittal reformations and surface rendering three-dimensional reconstructions of the bones of the pelvis are also obtained. FINDINGS: There is osteopenia of the pelvis. There are degenerative changes of the left hip and the lumbosacral junction and there are postoperative changes of the lower lumbar spine. There is diverticulosis of the colon. The soft tissues of the pelvis are unremarkable. IMPRESSION: No fractures seen. Automated exposure control and adaptive statistical iterative reconstruction were utilized as dose reduction techniques.
[2024-05-08] MEDS: HYDROcodone/APAP 5/325 1 TAB TABLET PO ONE (08:53)
[2024-05-08] MEDS: hydroMORPHone 0.5 MG SYG (0.5MG/0.5ML) IVP ONE (09:32)
[2024-05-08] MEDS ORDERED: HYDR-4060 PO (09:58)
[2024-05-08 10:08] VITALS: BP 157/80; PULSE 68; RESP 18; TEMP 97.7; O2SAT 97
== END 2024-05-08 10:49 | disposition home or self-care (01) ==
LOC: EDH 08:16
DX: G89.29 Other chronic pain (principal); M54.50 Low back pain, unspecified; E11.9 Type 2 diabetes mellitus without complications; I10 Essential (primary) hypertension; Z79.899 Other long term (current) drug therapy
CPT/HCPCS: 99285; 72131; 96374; 72192; 96372; J1885; J1171

== ENCOUNTER → 2025-06-12 | Outpatient (CLI) | payer OTHER ==
[~2025-06-12] MED LIST changes: +ACET-2247 PO; -GABA-529 PO; +GABA300C PO; -OMEP20CA12 PO
--- NOTE | 2025-06-14 11:23 | HMCIMG ---
PROCEDURE: Esophagram. TECHNIQUE: Oral ingestion of barium and effervescent crystals was performed and multiple fluoroscopic images were obtained to evaluate the esophagus. FLUOROSCOPY TIME: 1.1 minutes pulsed fluoroscopy. FINDINGS: The esophagus demonstrates mild tertiary contraction. The mucosa is normal without evidence of mass, ulceration, or stricture. There was no gastroesophageal reflux witnessed during this examination. There is no hiatal hernia. A barium tablet easily passed through the esophagus into the stomach without hold up. Real-time visualization of swallowing were performed and demonstrated normal swallowing mechanism, normal contour, and normal mucosa. The stomach is normal size and configuration the. Rugal fold appears to be normal. The duodenal bulb and upper jejunum appears to be normal. IMPRESSION: Mild tertiary contraction of the esophagus. Otherwise normal esophagram and stomach.
== END | disposition home or self-care (01) ==
LOC: RAH 09:14
PROVIDERS: ATTEND Internal Medicine
DX: R13.10 Dysphagia, unspecified (principal)
CPT/HCPCS: 74220